=== PATIENT | female | born 1990 | race Caucasian/White ===

== ENCOUNTER 2023-12-17 08:16 | Outpatient (AMB) | payer BC, SELFPAY ==
--- NOTE | 2023-12-17 08:23 | MHC.OFFWIV ---
Intake Vital Signs 12/17/23 08:26 Height 5 ft 1 in Weight 170 lb 6 oz BMI 32.2 BP 104/78 Blood Pressure Location Rt brachial Position Sitting Pulse 101 H Pulse Source Pulse Oximeter Temp 98.8 F Temp Source Oral Pulse Oximetry (%) 99 Oxygen Delivery Method Room Air Intake Visit Reasons: Left lower hip pain Intake Note: Left lower hip pain and lower back pain. Is last menstrual period known: No Allergies No Known Allergies Allergy (Verified 12/17/23 08:35) Medication List - Last Reconciled 12/17/23 by Becky Matthews, AGRICULTURE INSTRUCTOR-BC dextroamphetamine-amphetamine 10 mg 1 tab PO BID Do you need a note to return to daycare/school/sports/work: No HPI HPI Comments History of Present Illness Details 33-year-old female here today with complaints of left hip pain. She reports that this started in November. She reports she had a sudden onset FN like she could not move or walk. She self treated with Tylenol, ibuprofen and ice and her symptoms improved entirely. A few weeks after that the pain returned again although it was not as intense and the pain did not last for as long. She self treated again with Tylenol ibuprofen and this time included magnesium would seem to resolve her symptoms entirely. She was in her normal state of health until a few days ago when she developed the same left hip pain. She reports that it hurts so bad that she could not even move. She denies any known tick bites, fever, overt injury, new activity, redness or swelling to the joint, rash. She reports good sensation to the left leg and foot. She denies any urinary symptoms. Denies any back pain. Denies any loss of function. Exam Awake alert oriented, accompanied by No CVAT bilat Abdomen soft nontender Very guarded in position changes. Pain with palpation over left iliac crest into her left back. No pain over greater trochanter. No erythema, warmth, ecchymosis or edema noted to the hip joint. No obvious deformity. Painful and restricted range of motion in all directions both passive and active. Walking with antalgic gait, hunched over favoring that left side. + pedal pulses, neurovasc grossly intact Plan Unsure of the cause for her pain today. I will start with an x-ray as well as referral to Orthopedics and Physical therapy for further evaluation and treatment. I have prescribed meloxicam for her to take daily with food to help the pain. If medication is needed for breakthrough pain okay to use Tylenol. Avoid any other NSAIDs while taking meloxicam. Baclofen was prescribed as needed 3 times a day, reports that she did not tolerate Flexeril in the past; stating it did not work. I have encouraged her to sign up for the patient portal so that she may be a rest of the x-ray results once that they are in. This note is constructed using voice recognition software. While every effort has been made to ensure accuracy in consumer loan specialist, still errors may have been included Sometimes, these errors may affect the content or meaning of the given sentence . Total time spent caring for the patient today was 31 minutes. This includes time spent before the visit reviewing the chart, time spent during the visit, and time spent after the visit on documentation Physical Exam Vital Signs: Last Vital Signs Temp 98.8 F 12/17/23 08:26 Pulse 101 H 12/17/23 08:26 BP 104/78 12/17/23 08:26 Pulse Ox 99 12/17/23 08:26 Oxygen Delivery Method Room Air 12/17/23 08:26 BMI result Body Mass Index 32.2 Assessment & Plan Assessment & Plan (1) Left hip pain: Code(s): M25.552 - Pain in left hip Plan: . Orders: Orders XR hip LT w PEL1V Today M25.552 - Pain in left hip PT Evaluation and Treatment Today M25.552 - Pain in left hip Referrals Orthopedics Referral M25.552 - Pain in left hip Medications: New meloxicam 7.5 mg PO DAILY 30 tabs 0RF baclofen 10 mg PO TID PRN 30 tabs 0RF muscle spasm Coding Level of Care Code Est Pt Level 4 (98296) Diagnoses Left hip pain M25.552
[2023-12-17 08:26] VITALS: BP 104/78; PULSE 101; TEMP 37.1; O2SAT 99; BMI 32.2
== END 2023-12-17 08:55 | disposition home or self-care (01) ==
PROVIDERS: PCP Nurse Practitioner Family; Visit Provider Nurse Practitioner Family
DX: M25.552 Pain in left hip (principal)
CPT/HCPCS: 99214

== ENCOUNTER 2023-12-17 09:21 | Outpatient (REF) | payer BC, SELFPAY ==
--- NOTE | ~2023-12-17 | XR_ITS ---
EXAMINATION: XR HIP, LEFT CLINICAL INFORMATION: Pain. COMPARISON: None available. TECHNIQUE: Two views of the left hip. FINDINGS: No fracture. Alignment is anatomic. Hip joint space is maintained. Soft tissues are unremarkable. XR/XR hip LT w PEL1V IMPRESSION: Normal left hip.
== END 2023-12-17 09:22 | disposition home or self-care (01) ==
LOC: HO.HMGCX 09:21
PROVIDERS: Visit Provider Nurse Practitioner Family
DX: M25.552 Pain in left hip (principal)
CPT/HCPCS: 73502

== ENCOUNTER 2024-01-12 10:04 | Outpatient (AMB) | payer BC, SELFPAY ==
--- NOTE | 2024-01-12 10:15 | MHC.OFFVIS ---
Vital Signs 01/12/24 10:22 Height 5 ft 1 in Weight 170 lb BMI 32.1 Intake Visit Reasons: PRESSER FIRST-Left hip pain, no known injury Intake Note: Jarred a 33 year old female who presents today for a new patient evaluation of left hip pain. Patient reports her pain has been present since November. Denies injury. States she started having soreness one day and was unable to move, her pain improved for about 2 weeks. This than happened again and has had constant pain for the past 4 weeks. Her pain is located in her groin and radiates to her hip, buttocks and lower back. Denies numbness or tingling. She was seen at [facility] [place] and was prescribed baclofen and meloxicam that provided her with some relief. Finds very little relief with Tylenol and Motrin. Allergies No Known Allergies Allergy (Verified 01/12/24 10:18) Medication List - Last Reconciled 01/12/24 by Delgado Kyle PA-C baclofen 10 mg PO TID PRN dextroamphetamine-amphetamine 10 mg 1 tab PO BID meloxicam 7.5 mg PO DAILY naproxen 500 mg PO BID 30 days HPI HPI PRESSER FIRST-Left hip pain, no known injury: Details: 33-year-old female who presents to the office today for an evaluation of left hip pain since November. She reports she had pain one day after an intense orgasm and was unable to move. Her pain improved for about 2 weeks however she this happened again and she has been experiencing constant pain for the past 4 weeks. She was seen at walk-in clinic where she was given baclofen and meloxicam that provided her mild relief. She currently states she has pain in her groin region that radiates into her hip, buttocks, and lower back. Her pain alleviates with leg extension. She denies any numbness or tingling. She finds minimal relief with icing, heat pack with massages, Tylenol and Motrin. She has not had any injury in the past. 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, right hand dominant Review of Systems Const All systems reviewed & are unremarkable except as noted in HPI and below Physical Exam Vital Signs: BMI result Body Mass Index 32.1 Const General: cooperative, healthy appearing, comfortable, no acute distress, well developed and alert Orientation/consciousness: patient oriented x3 HEENT Head: Yes normal to inspection, Yes normocephalic and Yes atraumatic Eyes General: appearance normal, both eyes and all related structures Resp Effort & Inspection: normal respiratory effort and able to speak in complete sentences Cardio Rate: regular rate Peripheral pulses: Peripheral pulses 2+ throughout GI Palpation (GI): Soft to palpation Skin Lesions: no lesions Rashes: no rashes Neuro General: patient oriented x3 Extrem Other: Left hip: Normal to inspection. No tenderness along the greater trochanter however she has discomfort in the deep groin region which radiates to the lateral aspect of her hip and into the buttock region. She has significant discomfort with lying flat and bringing her to hip flexion and has least pain with hip extension. She has difficulty performing an SLR. Results Reviewed Results Reviewed: XR hip LT w PEL1V 12/17/23 IMPRESSION: Normal left hip. Assessment & Plan Assessment & Plan (1) Tendonitis of left hip flexor: Code(s): M76.892 - Other specified enthesopathies of left lower limb, excluding foot Category: Medical Plan We discussed options today which include referral to physical therapy for left hip stabilization/ROM and pelvic floor exercises. An MRI of the left hip was ordered to further evaluate the surrounding structures. I also gave her a prescription for naproxen to take twice a day for 2 weeks to help with acute flareups. She will see me back once the MRI is complete to discuss the results. Orders: Orders PT Evaluation and Treatment Today M62.89 - Other specified disorders of muscle, M76.892 - Other specified enthesopathies of left lower limb, excluding foot MR hip LT wo con Today M76.892 - Other specified enthesopathies of left lower limb, excluding foot Medications: New naproxen 500 mg PO BID 60 tabs 3RF 30 days Patient Instructions: Scribed for Delgado Kyle PA-C, by Kirill Acevedo biomedical equipment technician, on 01/12/2024 at 10:15 AM EST.? I, Delgado Kyle PA-C, have personally reviewed and agree with the information entered by the scribe. Coding Level of Care Code New Pt Level 3 (00898) Diagnoses Tendonitis of left hip flexor M76.892
[2024-01-12 10:22] VITALS: BMI 32.1
== END 2024-01-12 11:12 | disposition home or self-care (01) ==
PROVIDERS: PCP Internal Medicine Cardiovascular Disease; Visit Provider Physician Assistant
DX: M76.892 Other specified enthesopathies of left lower limb, excluding foot (principal)
CPT/HCPCS: 99203

== ENCOUNTER → 2024-01-12 10:04 | Outpatient (BNVA) | payer BC, SELFPAY | PROVIDERS: PCP Internal Medicine Cardiovascular Disease; Visit Provider Physician Assistant ==

== ENCOUNTER 2024-03-08 11:00 | Outpatient (RCR) | payer BC, SELFPAY ==
--- NOTE | 2024-02-16 12:27 | MHC.PT.EP ---
[facility] [place] Office [place] Office [place] Office [address] [phone] F: [phone] F: [phone] F: [phone] F: [phone] Physical Therapy Plan of Care Date of Evaluation: 02/16/24 Date of Surgery: Diagnosis: other specified enthersopthaties of L LE,excluding foot other specified disorders of muscles Tendonitis of L hpi flexor *pelvic floor dysfunction in female Assessment: 33 y/o female referred to PT with other specified enthersopthaties of L LE,excluding foot; other specified disorders of muscles; and Tendonitis of L hip flexor *pelvic floor dysfunction in female. Pt presents with s/s consistent with SI dysfunction and pelvic muscle dysfunction resulting in pain and difficulty with walking, stairs, rolling in bed, bending, and standing after prolonged sitting. Examination shows decreased hip ROM (especially hip ER), increased TTP along L groin/hip, altered SI mechanics, decreased hip strength, decreased lumbar AROM, and impaired gait pattern. At this time, an order was not speciifcally for pelvic floor physical therapy and therefore POC to include external techniques, MET for SI, stretching and stabilization. If no change in 3-4 visits, then will reach out for pelvic floor PT script. Recommend PT 2x/week for 5 weeks to address impairments, implement HEP, and optimize functional mobility. Frequency and Duration: The patient will be seen 2x/week for 5 weeks Short Term Goals: 3 weeks I with HEP Pt will be able to ambulate with even step length and pain < 3/10 Halfway Goals: 5 weeks I with hEP and self management of sx Pt will be able to ascend/ descend stairs in step through pattern with pain <3/10 Pt will show normal hip ROM to facilitate functional mobility Treatment Plan: Modalities to reduce pain, spasms and effusion. Manual therapy to restore motion and function. Therapeutic exercise to improve strength and flexibility. Neuromuscular re-education for posture and balance. Therapeutic activities to return to functional activities of daily living. Electronically signed by: Kathia Dupree PT Please sign and return to therapist. Thank you for your referral.
--- NOTE | 2024-03-22 08:27 | MHC.PT.DC ---
[facility] [place] Office [place] Office [place] Office [address] [phone] F: [phone] F: [phone] F: [phone] F: [phone] Physical Therapy Discharge Report Diagnosis: other specified enthersopthaties of L LE,excluding foot other specified disorders of muscles Tendonitis of L hpi flexor *pelvic floor dysfunction in female Date of Surgery: Date of Evaluation: 02/16/24 Date of Discharge: 03/22/24 Treatments to Date: 7 Cancellations to Date: 0 No Shows to Date: 0 Discharge Status: Patient Elected to Stop Recommend MD Follow-up Discharge Summary: Pt underwent hip MRI and mass was seen. D/c chart and pt to f/u with MD re findings. Electronically signed by: Kathia Dupree PT Please sign and return to therapist. Thank you for your referral.
== END 2024-03-22 08:27 | disposition home or self-care (01) ==
LOC: HO.PT 11:00
PROVIDERS: PCP Family Medicine; Visit Provider Physician Assistant
DX: M76.892 Other specified enthesopathies of left lower limb, excluding foot (principal); M62.89 Other specified disorders of muscle
CPT/HCPCS: 97110; 97116; 97140; 97161

== ENCOUNTER 2024-03-08 19:27 | Outpatient (REF) | payer BC, SELFPAY ==
--- NOTE | ~2024-03-08 | MR_ITS ---
EXAMINATION: MR HIP WITHOUT CONTRAST, LEFT CLINICAL INFORMATION: Left hip pain. Limited range of motion. Difficulty walking. COMPARISON: Left hip and pelvic radiographs dated 12/17/2023. TECHNIQUE: MRI of the left hip was obtained using routine sequences on a high-field magnet. FINDINGS: There is a large, expansile mass which appears centered in the left acetabulum and extends superiorly to the iliac crest adjacent to the cingulate joint as well as inferior to the initial tuberosity. Overall this mass measures approximately 8.7 x 7.2 x 18.6 cm (AP x ML x CC). This demonstrates heterogeneous isointense T1 and hyperintense T2 signal with thin linear areas of low T1/low T2 signal. There is associated cortical expansion and erosion as well as extraosseous soft tissue components to the mass. There is adjacent soft tissue edema extending into the proximal aspect of the gluteal musculature as well as the adductor musculature. No extension of the lesion across the left sacral iliac joint or into the femoral head. Findings are new when compared to the radiographs dated 12/17/2023. No additional lytic or blastic osseous lesions seen within the coronal pelvic images. No femoral stress reaction, fracture, or avascular necrosis. Intact articular cartilage. Otherwise intact Musich or without a complete tendon tear or tendon retraction. Small left hip joint effusion. The visualized intrapelvic structures are grossly unremarkable. MR/MR hip LT wo con IMPRESSION: 1. Large, expansile mass centered in the left acetabulum with extraosseous soft tissue components as well as cortical expansion and erosion. Findings are new when compared to the radiographs dated 12/17/2023. Findings are concerning for an aggressive metastatic lesion. A primary osseous neoplasm such as chondrosarcoma cannot be entirely excluded, however, is thought less likely due to the rapid progression of the lesion. No additional lytic or blastic osseous lesions seen within the visualized pelvic images. 2. Small left hip joint effusion. This critical result was discussed with SANDI Kyle at 9:09 AM on 03/09/2024 and it was ascertained that the content and urgency of the report was understood at the time of direct communication. Electronically signed by: Boom Le MD 03/09/2024 10:24 AM EDT
== END 2024-03-08 19:28 | disposition home or self-care (01) ==
LOC: HO.MRI 19:27
PROVIDERS: PCP Family Medicine; Visit Provider Physician Assistant
DX: M76.892 Other specified enthesopathies of left lower limb, excluding foot (principal)
CPT/HCPCS: 73721